=== PATIENT | male | born 1985 | race Caucasian/White ===

== ENCOUNTER 2019-06-13 18:30 | Emergency (ER) | payer OTHER ==
[2019-06-13 18:37] VITALS: BP 149/98; PULSE 78; TEMP 98; BMI 28.5
--- NOTE | 2019-06-13 18:56 | PDOC ---
History of Present Illness - General Chief Complaint: Pain Stated Complaint: PAIN Time Seen by Provider: 06/13/19 18:56 History Source: Patient Exam Limitations: No Limitations - History of Present Illness Initial Comments: 06/13/19 19:21 Chief complaint: Arm pain Patient is a healthy 34-year-old male who has what he feels is a lump to the left upper arm for a year. He went to his primary care doctor who evaluated and said it was nothing about a year ago. He has not had a further evaluated and states that he came today because he had time and it was more painful. Patient has no fever, no injury. GENERAL/CONSTITUTIONAL: No fever, weakness. dizziness HEAD, EYES, EARS, NOSE AND THROAT: No change in vision. No ear pain or discharge. No sore throat. CARDIOVASCULAR: No chest pain RESPIRATORY: No shortness of breath or cough GASTROINTESTINAL: No pain, nausea, vomiting, diarrhea or constipation GENITOURINARY: No dysuria MUSCULOSKELETAL: No neck or back pain, + arm SKIN: No rash NEUROLOGIC: No headache, vertigo, loss of consciousness, or loss of sensation. GENERAL: The patient is awake, alert, and fully oriented, in no acute distress. HEAD: Normal with no signs of trauma. EYES: Pupils equal, round and reactive to light, sclera anicteric, conjunctiva clear. ENT: pharynx: no erythema, no exudate, uvula midline NECK: supple CHEST: clear, nontender, rr ABD: soft, nontender BACK: no tenderness or signs of injury EXTREMITIES: Left arm with approximately 2 cm hard slightly tender area on the lateral mid upper arm, no signs of infection, no deformity, full range of motion , neurovascular intact. No ecchymosis. Rest of extremities, normal range of motion, no edema. NEUROLOGICAL: Normal speech, normal gait. SKIN: Warm, Dry Past History - Past Medical History Allergies/Adverse Reactions: Allergies Allergy/AdvReac Type Severity Reaction Status Date / Time sulfur [From Sulfur-8] Allergy Rash Verified 08/23/15 08:04 Home Medications: Ambulatory Orders Ibuprofen 600 mg PO Q6H PRN #30 tablet 08/23/15 COPD: No - Psycho Social/Smoking Cessation Hx Smoking Status: No Smoking History: Never smoked Have you smoked in the past 12 months: No Number of Cigarettes Smoked Daily: 0 Information on smoking cessation initiated: No Hx Alcohol Use: No Drug/Substance Use Hx: No Substance Use Type: None *Physical Exam - Vital Signs Last Vital Signs Temp Pulse Resp BP Pulse Ox 98.0 F 78 16 149/98 100 06/13/19 18:34 06/13/19 18:34 06/13/19 18:34 06/13/19 18:34 06/13/19 18:34 Medical Decision Making - Medical Decision Making 06/13/19 19:23 34-year-old male with possibility of soft tissue mass for 1 year, more painful. No fever or signs of infection, no gross swelling, full range of motion. No acute issue to be evaluated further in the ER and this was fully explained to patient. Patient is aware as per his discharge instructions he needs to follow- up with plastic surgeon for further evaluation and to make sure this is not cancer. Discussed issues, findings, results, applicable medications and treatments and follow-up. All these were understood and all questions were answered Discharge - Discharge Information Problems reviewed: Yes Clinical Impression/Diagnosis: Localized swelling, mass and lump, upper limb Qualifiers: Laterality: left Qualified Code(s): R22.32 - Localized swelling, mass and lump , left upper limb Condition: Stable Disposition: HOME - Admission No - Follow up/Referral Referrals: Irasema Arriaga MD [Primary Care Provider] - Amos Amaya [Non Staff, Medical] - - Patient Discharge Instructions Additional Instructions: It is not clear why you have the pain and lump in your arm. This needs to be further evaluated to make sure this is not cancer. You need to follow-up with the doctor listed below or any other plastic surgeon. If you have a hard time getting into see a plastic surgeon, you can follow up with Dr. Carlin first. Do not ignore this. - Post Discharge Activity
[2019-06-13] MEDS ORDERED: ACETAMINOPHEN INJECTION 100 ML IVPB ONE (20:43)
[2019-06-13] MEDS ORDERED: ONDANSETRON *ODT* 4 MG TABLET ONE ×2 (20:49→20:51)
== END 2019-06-13 19:07 | disposition home or self-care (01) ==
LOC: JERFT 18:30
DX: R22.32 Localized swelling, mass and lump, left upper limb (principal); Z88.2 Allergy status to sulfonamides
CPT/HCPCS: 99281-25